=== PATIENT | male | born 1945 | race Caucasian/White ===

== ENCOUNTER → 2019-05-15 | Day surgery (SDC) | payer BC ==
[2019-05-08 15:00] LABS: BASOPHILS % 0.4 % (0.0-1.0); EOSINOPHILS # (AUTO) 0.2 (0.0-0.4); EOSINOPHILS % 2.4 % (0.0-6.0); HEMATOCRIT 45.3 % (38.2-49.6); HEMOGLOBIN 14.4 g/dL (14.0-18.0); LYMPHOCYTES # (AUTO) 2.4 (1.0-3.2); LYMPHOCYTES % 30.8 % (18.0-39.1); MEAN CORPUSCULAR HEMOGLOBIN 30.8 pg (28-32); MEAN CORPUSCULAR HGB CONC 31.8 g/dL (31-35); MEAN CORPUSCULAR VOLUME 96.8 fL (81-99); MONOCYTES % 13.4 % (4.4-11.3); NEUTROPHILS % 52.5 % (38.7-80.0); PLATELET COUNT 201 x10e3/uL (140-360); RED BLOOD COUNT 4.68 x10e6/uL (4.3-5.7); RED CELL DISTRIBUTION WIDTH 14.4 % (11.7-14.4)
[~2019-05-15] MED LIST: ADVAIR; ADVAIR 250-501 EACH INH; AMIODARONE HCL200 MG PO; AMLODIPINE BESYL5 MG PO; ASPIR 8181 MG PO; ASPIRIN325 MG PO; CALCITRIOL0.25 MCG PO; CRESTOR20 MG PO; FAMOTIDINE20 MG PO; FLOMAX0.4 MG PO; FUROSEMIDE40 MG PO; ISOSORBIDE MONO30 MG PO; LEVOTHYROXINE50 MCG PO; LISINOPRIL; METOPROLOL TART25 MG PO; PLAVIX75 MG PO; POTASSIUM CHLO20 ME1 PO; PROPOFOL IV EMULSION 10 MG/ML 50 ML VIAL ONE; SIMVASTATIN; VASCEPA1 GM PO; VERAPAMIL HCL360 MG PO; VERAPAMIL PO; XOPENEX HFA15 GM INH
--- OUTSIDE RECORDS SUMMARY | 2019-05-15 14:30 | XMS REPORT ---
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 Active Not available benzonatate 100 mg capsule Completed 01/29/2016 calcitriol 0.25 mcg capsule TAKE ONE CAPSULE BY MOUTH EVERY DAY Active Not available carvedilol 12.5 mg tablet Active Not available cefdinir 300 mg capsule Completed 01/29/2016 ciprofloxacin 500 mg tablet Completed 06/16/2017 clopidogrel 75 mg tablet Active Not available Crestor 40 mg tablet Completed 01/01/2016 diazepam 10 mg tablet Completed 01/31/2017 ferrous sulfate 325 mg (65 mg iron) tablet Take 1 tablet every day by oral route for 60 days. Completed 01/31/2017 fluticasone 50 mcg/actuation nasal spray,suspension Active Not available furosemide 40 mg tablet Active Not available hydrocortisone acetate 25 mg rectal suppository Insert 1 suppository twice a day by rectal route for 14 days. Active Not available Hydromet 5 mg-1.5 mg/5 mL syrup Take 5 mL every 4 hours by oral route as needed for 10 days. Completed 06/16/2017 ipratropium bromide 0.02 % solution for inhalation use as needed Active Not available isosorbide mononitrate ER 30 mg tablet,extended release 24 hr Active Not available levalbuterol HFA 45 mcg/actuation aerosol inhaler Active Not available levothyroxine 50 mcg tablet Active Not available lisinopril 20 mg-hydrochlorothiazide 25 mg tablet Active Not available methylprednisolone 4 mg tablets in a dose pack Completed 06/16/2017 metoprolol tartrate 25 mg tablet Active Not available nystatin 100,000 unit/gram topical cream APPLY TO THE AFFECTED AREA(S) BY TOPICAL ROUTE 2 TIMES PER DAY Completed 04/12/2017 omeprazole 40 mg capsule,delayed release Completed 01/29/2016 01/29/2016 potassium chloride ER 20 mEq tablet,extended release(part/cryst) Completed 03/03/2016 prednisolone acetate 1 % eye drops,suspension Completed 03/03/2016 Protonix 40 mg tablet,delayed release Take 1 tablet every day Completed 09/09/2016 rosuvastatin 20 mg tablet Active Not available Senokot-S 8.6 mg-50 mg tablet Take 2 tablets every day by oral route. Completed 09/09/2016 tamsulosin 0.4 mg capsule Active Not available tramadol 50 mg tablet Completed 04/12/2017 verapamil ER (PM) 300 mg capsule 24hr pellet CT,ext.release Completed 01/29/2016 Vitamin D2 50,000 unit capsule Active Not available Problems Name Status Onset Date Source Pure Hypercholesterolemia Active 01/13/2015 History Recurrent Major Depression Active 01/13/2015 History Insomnia Active 01/13/2015 History Moderate Persistent Asthma Active 01/13/2015 History Gastroesophageal Reflux Disease without Esophagitis Active 01/13/2015 History Chronic Kidney Disease Stage 3 Unknown 01/13/2015 History Localized Edema Active 01/13/2015 History Clinical Finding Unknown 01/13/2015 History First Degree Atrioventricular Block Active 05/12/2015 History Paroxysmal Atrial Fibrillation Active 05/12/2015 History Antiplatelet Agent Therapy Active 05/12/2015 History Long-term Drug Therapy Active 05/12/2015 History Therapeutic Drug Monitoring Assay Unknown 05/12/2015 History Testicular Hypofunction Active 05/21/2015 History 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 05/21/2015 History Chronic Ischemic Heart Disease Active 07/22/2015 History Chronic Kidney Disease Stage 4 Active 07/22/2015 History Congenital Cystic Disease of Liver Unknown 07/31/2015 History Lower Urinary Tract Symptoms Due to Benign Prostatic Hypertrophy Active 01/01/2016 Coronary Bypass Graft Finding Active 01/29/2016 Obstructive Sleep Apnea Syndrome Active 02/18/2016 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 Chronic Obstructive Lung Disease Active 09/09/2016 Arteriosclerosis of Coronary Artery Bypass Graft Active 12/08/2016 Procedures Date Name Performed by 06/03/2016 XR, Hip, Unilateral, 2 or 3 View Information not available Notes: Triple By-pass 12/2015 Lab Results Date Name Specimen Result Interpretation Description Value Range Status Address 03/03/2016 CBC W/ Auto Diff Normal White Blood Cell Count 10.8 thousand/uL 3.8-10.8 thousand/uL Final [facility]: [address] [facility], [place] Normal Red Blood Cell Count 5.19 million/uL 4.20-5.80 million/uL Final [facility]: [address] [facility], [place] Normal Hemoglobin 14.2 g/dL 13.2-17.1 g/dL Final [facility]: [address] [facility], [place] Normal Hematocrit 46.0 % 38.5-50.0 % [facility]: [address] [facility], [place] Normal Mcv 88.6 fL 80.0-100.0 fL Final [facility]: [address] [place] [address], [place] Normal Mch 27.4 pg 27.0-33.0 pg Final [facility]: [address] [place] [address], [place] Low Mchc 30.9 g/dL 32.0-36.0 g/dL Final [facility]: [address] [facility], [place] High Rdw 16.1 % 11.0-15.0 % [facility]: [address] [facility], [place] Normal Platelet Count 299 thousand/uL 140-400 thousand/uL Final [facility]: [address] [place] [address], [place] Normal Mpv 9.6 fL 7.5-11.5 fL Final [facility]: [address] [facility], [place] Normal Absolute Neutrophils 5962 cells/uL 0081-7102 cells/uL Final [facility]: [address] [facility], [place] Normal Absolute Lymphocytes 3035 cells/uL 850-3900 cells/uL Final [facility]: [address] [facility], [place] Normal Absolute Monocytes 918 cells/uL 200-950 cells/uL Final [facility]: [address] [facility], [place] High Absolute Eosinophils 832 cells/uL 15-500 cells/uL Final [facility]: [address] [place] [address], [place] Normal Absolute Basophils 54 cells/uL 0-200 cells/uL Final [facility]: [address] [place] [address], [place] Normal Neutrophils 55.2 % Final [facility]: [address] [place] [address], [place] Normal Lymphocytes 28.1 % Final [facility]: [address] [place] [address], [place] Normal Monocytes 8.5 % Final [facility]: [address] [place] [address], [place] Normal Eosinophils 7.7 % Final [facility]: [address] [place] [address], [place] Normal Basophils 0.5 % Final [facility]: [address] [place] [address], [place] 01/29/2016 Lipid Panel, Serum Low Cholesterol, Total 121 mg/dL 125- 200 mg/dL Final [facility]: [address] [place] [address], [place] Low HDL Cholesterol 39 mg/dL > or=40 mg/dL Final [facility]: [address] [place] [address], [place] Normal Triglycerides 119 mg/dL <150 mg/dL Final [facility]: [address] [place] [address], [place] Normal LDL-cholesterol 58 mg/dL (calc) <130 mg/dL (calc) Final [facility]: [address] [place] [address], [place] Normal Chol/hdlc Ratio 3.1 (calc) < or=5.0 (calc) Final [facility]: [address] [place] [address], [place] Normal Non HDL Cholesterol 82 mg/dL (calc) Final [facility]: [address] [place] [address], [place] 01/29/2016 Magnesium, Serum or Plasma Normal Magnesium 1.9 mg/dL 1.5- 2.5 mg/dL Final [facility]: [address] [place] [address], [place] 01/29/2016 Phosphorus, Serum or Plasma Normal Phosphate (as Phosphorus) 2.9 mg/dL 2.1-4.3 mg/dL Final [facility]: [address] [place] [address], [place] 01/29/2016 CMP, Serum or Plasma Normal Glucose 87 mg/dL 65-99 mg/dL Final [facility]: [address] [place] [address], [place] Normal Urea Nitrogen (BUN) 13 mg/dL 7-25 mg/dL Final [facility]: [address] [place] [address], [place] High Creatinine 1.35 mg/dL 0.70-1.18 mg/dL Final [facility]: [address] [facility] [address] [facility], [place] Low eGFR Non-afr. Swedish 53 mL/min/1.73m2 > or=60 mL/min/1.73m2 Final [facility]: [address], [place] Normal eGFR 61 mL/min/1.73m2 > or=60 mL/min/1.73m2 Final [facility]: [address], [place] Normal BUN/creatinine Ratio 10 (calc) 6-22 (calc) Final [facility]: [address] [facility], [place] Normal Sodium 142 mmol/L 135-146 mmol/L Final [facility]: [address] [facility], [place] Normal Potassium 4.3 mmol/L 3.5-5.3 mmol/L Final [facility]: [address] [facility], [place] Normal Chloride 106 mmol/L 98-110 mmol/L Final [facility]: [address] [facility], [place] Normal Carbon Dioxide 29 mmol/L 20-31 mmol/L Final [facility]: [address] [facility], [place] Normal Calcium 9.3 mg/dL 8.6-10.3 mg/dL Final [facility]: [address] [facility], [place] Normal Protein, Total 6.6 g/dL 6.1-8.1 g/dL Final [facility]: [address] [facility], [place] Normal Albumin 4.1 g/dL 3.6-5.1 g/dL Final [facility]: [address] [facility], [place] Normal Globulin 2.5 g/dL (calc) 1.9-3.7 g/dL (calc) Final [facility]: [address] [facility], [place] Normal Albumin/globulin Ratio 1.6 (calc) 1.0-2.5 (calc) Final [facility]: [address] [facility], [place] Normal Bilirubin, Total 0.5 mg/dL 0.2-1.2 mg/dL Final [facility]: [address] [facility], [place] Normal Alkaline Phosphatase 80 U/L 40-115 U/L Final [facility]: [address] [facility], [place] Normal Ast 20 U/L 10-35 U/L Final [facility]: [address] [facility], [place] Normal Alt 20 U/L 9-46 U/L Final [facility]: [address], [place] 01/29/2016 CBC W/ Auto Diff Normal White Blood Cell Count 7.7 thousand/uL 3.8-10.8 thousand/uL Final [facility]: [address] [facility], [place] Normal Red Blood Cell Count 4.55 million/uL 4.20-5.80 million/uL Final [facility]: [address] [facility], [place] Low Hemoglobin 12.6 g/dL 13.2-17.1 g/dL Final [facility]: [address] [facility], [place] Normal Hematocrit 41.2 % 38.5-50.0 % Final [facility]: [address] [place] [address], [place] Normal Mcv 90.6 fL 80.0-100.0 fL Final [facility]: [address] [place] [address], [place] Normal Mch 27.6 pg 27.0-33.0 pg Final [facility]: [address] [place] [address], [place] Low Mchc 30.5 g/dL 32.0-36.0 g/dL Final [facility]: [address] [facility], [place] High Rdw 17.5 % 11.0-15.0 % Final [facility]: [address] [place] [address], [place] Normal Platelet Count 277 thousand/uL 140-400 thousand/uL Final [facility]: [address] [facility], [place] Normal Mpv 9.5 fL 7.5-11.5 fL Final [facility]: [address] [facility], [place] Normal Absolute Neutrophils 4389 cells/uL 7705-2665 cells/uL Final [facility]: [address] [facility], [place] Normal Absolute Lymphocytes 2133 cells/uL 850-3900 cells/uL Final [facility]: [address] [facility], [place] Normal Absolute Monocytes 593 cells/uL 200-950 cells/uL Final [facility]: [address] [place] [address], [place] High Absolute Eosinophils 547 cells/uL 15-500 cells/uL Final [facility]: [address], [place] Normal Absolute Basophils 39 cells/uL 0-200 cells/uL Final [facility]: [address], [place] Normal Neutrophils 57.0 % Final [facility]: [address], [place] Normal Lymphocytes 27.7 % Final [facility]: [address], [place] Normal Monocytes 7.7 % Final [facility]: [address], [place] Normal Eosinophils 7.1 % Final [facility]: [address], [place] Normal Basophils 0.5 % Final [facility]: [address], [place] 01/29/2016 PTH (Parathyroid Hormone), Intact, Serum or Plasma Normal Parathyroid Hormone, Intact 51 pg/mL 14-64 pg/mL Final [facility]: [address], [place] Past Encounters 06/16/2017 Painless Rectal Bleeding; History of Polyp of Colon; Body Mass Index 30+ - Obesity NADIA [place]: [address] [place] [phone], Ph. 04/12/2017 Upper Respiratory Infection; Cough; Chronic Obstructive Lung Disease; Hyperparathyroidism Due to Renal Insufficiency; Paroxysmal Atrial Fibrillation; Chronic Kidney Disease Stage 4; Influenza Vaccination; Malignant Hypertensive Heart and Renal Disease; Chronic Ischemic Heart Disease; Coronary Bypass Graft Finding; Obstructive Sleep Apnea Syndrome; Moderate Persistent Asthma Alek King MD: [address] [place] [phone], Ph. 01/31/2017 Chronic Constipation; Candidiasis of Skin; Chronic Obstructive Lung Disease; Malignant Hypertensive Heart and Renal Disease; Chronic Ischemic Heart Disease; Long-term Current Use of Antiplatelet Drug; Obstructive Sleep Apnea Syndrome; Hyperparathyroidism Due to Renal Insufficiency; Acquired Hypothyroidism Alek King MD: [address] [place] [phone], Ph. 09/09/2016 Malignant Hypertensive Heart and Renal Disease; Paroxysmal Atrial Fibrillation; Chronic Ischemic Heart Disease; Chronic Obstructive Lung Disease; Chronic Kidney Disease Stage 4; Pure Hypercholesterolemia; Lower Urinary Tract Symptoms Due to Benign Prostatic Hypertrophy; Hyperparathyroidism Due to Renal Insufficiency Alek King MD: [address] [place] [address], [place] [phone], Ph. 06/03/2016 Acute Low Back Pain; Hip Pain; Hyperparathyroidism Due to Renal Insufficiency; Paroxysmal Atrial Fibrillation; Chronic Kidney Disease Stage 4 Alek King MD: [address] [place] [address], [address] [place] [phone], Ph. 03/03/2016 Melena Due to Gastrointestinal Hemorrhage; Influenza Vaccination lAek King MD: [address] [place] [address], [address] [address], Ph. 01/29/2016 Hypertensive Renal Disease; Coronary Bypass Graft Finding; Moderate Persistent Asthma; Antiplatelet Agent Therapy; Hyperparathyroidism Due to Renal Insufficiency; Gastroesophageal Reflux Disease without Esophagitis; Chronic Kidney Disease Stage 4; Pure Hypercholesterolemia Alek King MD: [address] [place] [address], [address] [phone], Ph. 01/01/2016 Surgical Follow-up; Chronic Ischemic Heart Disease; History of Coronary Artery Bypass Grafting; Moderate Persistent Asthma; Chronic Kidney Disease Stage 4; Antiplatelet Agent Therapy; Pure Hypercholesterolemia; Localized Edema; Paroxysmal Atrial Fibrillation; Therapeutic Drug Monitoring Assay; Hyperparathyroidism Due to Renal Insufficiency; Insomnia; Gastroesophageal Reflux Disease without Esophagitis Alek King MD: [address] [place] [address], [facility] [address] [phone], Ph. Social History Smoking Status Never Smoker Vaccine List Vaccine Type influenza, injectable, quadrivalent 12/10/2014 03/03/2016 influenza, injectable, quadrivalent, preservative free 04/12/20170.5 mL influenza, seasonal, injectable 12/07/2013 pneumococcal conjugate PCV 13 03/03/20160.5 mL Plan of Care Reminders Provider Appointments None recorded. Lab None recorded. Referral None recorded. Procedures None recorded. Surgeries None recorded. Imaging None recorded. Vitals 06/16/2017 01:15PM Est Patient Height Weight BMI Blood Pressure 6 ft 255.3 lbs 34.6 kg/m2 121/70 mm[Hg] 04/12/2017 10:30AM Est Patient Height Weight BMI Blood Pressure 6 ft 243 lbs 33 kg/m2 105/64 mm[Hg] 01/31/2017 04:00PM Est Patient Height Weight BMI Blood Pressure 6 ft 252.4 lbs 34.2 kg/m2 117/69 mm[Hg] 09/09/2016 01:30PM Est Patient Height Weight BMI Blood Pressure 6 ft 253 lbs 34.3 kg/m2 116/70 mm[Hg] 06/03/2016 10:15AM Est Patient Height Weight BMI Blood Pressure 6 ft 256.6 lbs 34.8 kg/m2 114/69 mm[Hg] 03/03/2016 12:45PM Work In Same Day Height Weight BMI Blood Pressure 6 ft 243 lbs 33 kg/m2 130/75 mm[Hg] 01/29/2016 03:45PM Est Patient Height Weight BMI Blood Pressure 6 ft 247 lbs 33.5 kg/m2 148/75 mm[Hg] 01/01/2016 02:45PM Est Patient Height Weight BMI Blood Pressure 6 ft 261.2 lbs 35.4 kg/m2 143/75 mm[Hg] 07/31/2015 Height Weight BMI Blood Pressure 6 ft 269.2 lbs 36.51 kg/m2 126/81 mm[Hg] 07/22/2015 Height Weight BMI Blood Pressure 6 ft 271.4 lbs 36.80 kg/m2 117/69 mm[Hg] 06/17/2015 Height Weight BMI Blood Pressure 6 ft 271.2 lbs 36.78 kg/m2 98/68 mm[Hg] 06/03/2015 Height Weight BMI Blood Pressure 6 ft 273.6 lbs 37.10 kg/m2 118/72 mm[Hg] 05/21/2015 Height Weight BMI 6 ft 265.6 lbs 36.02 kg/m2 05/21/2015 Blood Pressure 110/62 mm[Hg] 05/12/2015 Height Weight BMI Blood Pressure 6 ft 268.2 lbs 36.37 kg/m2 118/76 mm[Hg] 01/20/2015 Height Weight BMI Blood Pressure 6 ft 244.4 lbs 33.14 kg/m2 100/58 mm[Hg] 01/13/2015 Height Weight BMI Blood Pressure 6 ft 249.8 lbs 33.88 kg/m2 124/72 mm[Hg] 12/13/2014 Height Weight BMI Blood Pressure 6 ft 245.2 lbs 33.25 kg/m2 112/62 mm[Hg] 12/11/2014 Height Weight BMI Blood Pressure 6 ft 244 lbs 33.09 kg/m2 120/80 mm[Hg] 12/10/2014 Height Weight BMI Blood Pressure 6 ft 244.6 lbs 33.17 kg/m2 118/76 mm[Hg] 11/08/2014 Height Weight BMI Blood Pressure 6 ft 241.6 lbs 32.76 kg/m2 110/74 mm[Hg] 05/29/2014 Height Weight BMI Blood Pressure 6 ft 249.8 lbs 33.88 kg/m2 115/60 mm[Hg] 02/25/2014 Height Weight BMI Blood Pressure 6 ft 262.6 lbs 35.61 kg/m2 130/70 mm[Hg] 2013 Height Weight BMI Blood Pressure 6 ft 264 lbs 35.80 kg/m2 130/90 mm[Hg] 12/07/2013 Height Weight BMI Blood Pressure 6 ft 261.2 lbs 35.42 kg/m2 130/70 mm[Hg] 06/07/2013 Height Weight 6 ft 259 lbs 03/28/2013 Height Weight 6 ft 258.6 lbs 02/01/2013 Height Weight 6 ft 260.8 lbs 11/20/2012 Height Weight 6 ft 251 lbs 08/17/2012 Height Weight 6 ft 245.8 lbs 08/08/2012 Height Weight 6 ft 249.9 lbs 07/20/2012 Height Weight 6 ft 258 lbs 07/12/2012 Height Weight 6 ft 256.9 lbs 05/29/2012 Height Weight 6 ft 257.8 lbs 05/15/2012 Height Weight 6 ft 262.4 lbs 04/25/2012 Height Weight 6 ft 257.8 lbs 03/16/2012 Height Weight 6 ft 260.2 lbs 03/01/2012 Height Weight 6 ft 259.8 lbs 01/12/2012 Height Weight 6 ft 260.8 lbs 01/10/2012 Height Weight 6 ft 260.8 lbs 01/03/2012 Height Weight 6 ft 264.4 lbs 04/19/2011 Height Weight 6 ft 258 lbs 01/06/2011 Height Weight 6 ft 253.8 lbs 12/22/2010 Height Weight 6 ft 249 lbs 07/07/2010 Height Weight 6 ft 233.8 lbs 04/21/2010 Weight 246 lbs 04/15/2010 Height Weight 6 ft 245.4 lbs 04/08/2010 Height Weight 6 ft 245.4 lbs 11/18/2009 Weight 246.6 lbs 07/25/2009 Weight 239 lbs 06/11/2009 Weight 243.4 lbs 04/28/2009 Weight 250 lbs 12/27/2008 Weight 240 lbs 12/11/2008 Weight 238 lbs 11/21/2008 Weight 234 lbs 10/31/2008 Weight 236 lbs 06/26/2008 Height Weight 5 ft 11 in 241 lbs 03/01/2008 Height Weight 6 ft 236 lbs 02/23/2008 Weight 240.9 lbs 02/14/2008 Weight 238.9 lbs 01/15/2008 Weight 235.7 lbs 10/20/2007 Weight 243 lbs 10/09/2007 Weight 239.7 lbs 09/20/2007 Weight 246.1 lbs 08/09/2007 Weight 237.6 lbs 05/30/2007 Weight 239.3 lbs 05/03/2007 Weight 233.9 lbs 01/09/2007 Weight 234.7 lbs 09/09/2006 Weight 236.5 lbs 07/28/2006 Weight 232.5 lbs 02/10/2006 Weight 231.5 lbs 01/31/2006 Weight 225.2 lbs 09/23/2005 Weight 232 lbs 09/03/2005 Weight 231 lbs 07/07/2005 Weight 229 lbs 04/13/2005 Weight 224 lbs 03/29/2005 Weight 224 lbs 02/23/2005 Weight 228 lbs 11/10/2004 Weight 229 lbs 08/07/2004 Weight 228 lbs 03/20/2004 Weight 229 lbs 01/16/2004 Weight 227 lbs 12/31/2003 Weight 221 lbs
[2019-05-15 15:47] VITALS: BP 128/66
== END | disposition home or self-care (01) ==
LOC: OR 02:10
PROVIDERS: ATTEND Internal Medicine Gastroenterology
DX: Z12.11 Encounter for screening for malignant neoplasm of colon (principal); D12.0 Benign neoplasm of cecum; D12.2 Benign neoplasm of ascending colon; D12.3 Benign neoplasm of transverse colon; D12.4 Benign neoplasm of descending colon; K57.30 Diverticulosis of large intestine without perforation or abscess without bleeding; K64.8 Other hemorrhoids; K31.89 Other diseases of stomach and duodenum; K21.9 Gastro-esophageal reflux disease without esophagitis; G47.33 Obstructive sleep apnea (adult) (pediatric); I25.810 Atherosclerosis of coronary artery bypass graft(s) without angina pectoris; I48.91 Unspecified atrial fibrillation; E78.5 Hyperlipidemia, unspecified; E03.9 Hypothyroidism, unspecified; R73.03 Prediabetes; E66.9 Obesity, unspecified; F95.9 Tic disorder, unspecified; I12.9 Hypertensive chronic kidney disease with stage 1 through stage 4 chronic kidney disease, or unspecified chronic kidney disease; N18.3 Chronic kidney disease, stage 3 (moderate); I44.0 Atrioventricular block, first degree; J45.909 Unspecified asthma, uncomplicated; K76.9 Liver disease, unspecified; H91.90 Unspecified hearing loss, unspecified ear; Z01.810 Encounter for preprocedural cardiovascular examination; Z01.812 Encounter for preprocedural laboratory examination; Z79.899 Other long term (current) drug therapy; Z79.02 Long term (current) use of antithrombotics/antiplatelets; Z79.82 Long term (current) use of aspirin; Z68.37 Body mass index [BMI] 37.0-37.9, adult; Z95.1 Presence of aortocoronary bypass graft; Z98.61 Coronary angioplasty status
CPT/HCPCS: 36415; 45384; 45385; 85025; 93005; J2704; 45378

== ENCOUNTER 2020-02-04 15:35 | Outpatient (RCR) | payer BC ==
[~2020-02-04 15:35] MED LIST changes: +CLOTRIMAZOLE/BETAMETHASONE 45 GM CR TP ONE; -PROPOFOL IV EMULSION 10 MG/ML 50 ML VIAL ONE
[2020-02-11] MEDS ORDERED: FLUOCINONIDE 0.05% 1 EA/15 GM TUBE ONE (12:46)
[2020-02-11] MEDS ORDERED: MUPIROCIN 2% OINT 22 GM TUBE ONE (12:46)
== END 2020-02-11 ==
LOC: WCC 15:35
PROVIDERS: ATTEND Internal Medicine Infectious Disease
DX: E11.65 Type 2 diabetes mellitus with hyperglycemia (principal); B35.4 Tinea corporis; B37.2 Candidiasis of skin and nail; I12.9 Hypertensive chronic kidney disease with stage 1 through stage 4 chronic kidney disease, or unspecified chronic kidney disease; L03.115 Cellulitis of right lower limb; S81.801A Unspecified open wound, right lower leg, initial encounter; R60.0 Localized edema; L08.9 Local infection of the skin and subcutaneous tissue, unspecified; D12.4 Benign neoplasm of descending colon; N18.30 Chronic kidney disease, stage 3 unspecified; K76.9 Liver disease, unspecified; K57.30 Diverticulosis of large intestine without perforation or abscess without bleeding; B96.89 Other specified bacterial agents as the cause of diseases classified elsewhere; I25.810 Atherosclerosis of coronary artery bypass graft(s) without angina pectoris; E78.5 Hyperlipidemia, unspecified; I48.91 Unspecified atrial fibrillation; E03.9 Hypothyroidism, unspecified; H91.20 Sudden idiopathic hearing loss, unspecified ear; K21.9 Gastro-esophageal reflux disease without esophagitis; J45.909 Unspecified asthma, uncomplicated; E66.9 Obesity, unspecified
CPT/HCPCS: 36415; 82948

== ENCOUNTER → 2020-02-08 | Outpatient (CLI) | payer BC ==
[~2020-02-08] MED LIST changes: -CLOTRIMAZOLE/BETAMETHASONE 45 GM CR TP ONE
== END ==
LOC: WCC 16:18
PROVIDERS: ATTEND Internal Medicine Infectious Disease
DX: E11.65 Type 2 diabetes mellitus with hyperglycemia (principal); B35.4 Tinea corporis; B37.2 Candidiasis of skin and nail; L03.115 Cellulitis of right lower limb; R60.0 Localized edema; D12.4 Benign neoplasm of descending colon; E78.5 Hyperlipidemia, unspecified; I12.9 Hypertensive chronic kidney disease with stage 1 through stage 4 chronic kidney disease, or unspecified chronic kidney disease; K57.30 Diverticulosis of large intestine without perforation or abscess without bleeding; K76.9 Liver disease, unspecified; K21.9 Gastro-esophageal reflux disease without esophagitis; I25.810 Atherosclerosis of coronary artery bypass graft(s) without angina pectoris; I48.91 Unspecified atrial fibrillation; E03.9 Hypothyroidism, unspecified; E66.9 Obesity, unspecified; H91.20 Sudden idiopathic hearing loss, unspecified ear; J45.909 Unspecified asthma, uncomplicated; L08.9 Local infection of the skin and subcutaneous tissue, unspecified; B96.89 Other specified bacterial agents as the cause of diseases classified elsewhere; N18.30 Chronic kidney disease, stage 3 unspecified; S81.801A Unspecified open wound, right lower leg, initial encounter

== ENCOUNTER → 2020-02-11 | Outpatient (CLI) | payer BC | LOC: WCC 15:26 | PROVIDERS: ATTEND Internal Medicine Infectious Disease | DX: E11.65 Type 2 diabetes mellitus with hyperglycemia (principal); B35.4 Tinea corporis; L03.115 Cellulitis of right lower limb; B37.2 Candidiasis of skin and nail; R60.0 Localized edema; I12.9 Hypertensive chronic kidney disease with stage 1 through stage 4 chronic kidney disease, or unspecified chronic kidney disease; L08.9 Local infection of the skin and subcutaneous tissue, unspecified; S81.801A Unspecified open wound, right lower leg, initial encounter; B96.89 Other specified bacterial agents as the cause of diseases classified elsewhere; N18.30 Chronic kidney disease, stage 3 unspecified; D12.4 Benign neoplasm of descending colon; E03.9 Hypothyroidism, unspecified; E66.9 Obesity, unspecified; E78.5 Hyperlipidemia, unspecified; H91.20 Sudden idiopathic hearing loss, unspecified ear; I25.810 Atherosclerosis of coronary artery bypass graft(s) without angina pectoris; I48.91 Unspecified atrial fibrillation; J45.909 Unspecified asthma, uncomplicated; K21.9 Gastro-esophageal reflux disease without esophagitis; K57.30 Diverticulosis of large intestine without perforation or abscess without bleeding; K76.9 Liver disease, unspecified ==

== ENCOUNTER → 2020-02-18 | Outpatient (CLI) | payer BC ==
[~2020-02-18] MED LIST changes: +CLOTRIMAZOLE/BETAMETHASONE 45 GM CR TP ONE
== END ==
LOC: WCC 13:13
PROVIDERS: ATTEND Internal Medicine Infectious Disease
DX: E11.65 Type 2 diabetes mellitus with hyperglycemia (principal); B35.4 Tinea corporis; B37.2 Candidiasis of skin and nail; L03.115 Cellulitis of right lower limb; R60.0 Localized edema; L08.9 Local infection of the skin and subcutaneous tissue, unspecified; S81.801A Unspecified open wound, right lower leg, initial encounter; B96.89 Other specified bacterial agents as the cause of diseases classified elsewhere; I12.9 Hypertensive chronic kidney disease with stage 1 through stage 4 chronic kidney disease, or unspecified chronic kidney disease; N18.30 Chronic kidney disease, stage 3 unspecified; D12.4 Benign neoplasm of descending colon; I48.91 Unspecified atrial fibrillation; K57.30 Diverticulosis of large intestine without perforation or abscess without bleeding; I25.810 Atherosclerosis of coronary artery bypass graft(s) without angina pectoris; K76.9 Liver disease, unspecified; E03.9 Hypothyroidism, unspecified; E78.5 Hyperlipidemia, unspecified; E66.9 Obesity, unspecified; H91.20 Sudden idiopathic hearing loss, unspecified ear; J45.909 Unspecified asthma, uncomplicated; K21.9 Gastro-esophageal reflux disease without esophagitis

== ENCOUNTER → 2020-02-25 | Outpatient (CLI) | payer BC ==
[~2020-02-25] MED LIST changes: -CLOTRIMAZOLE/BETAMETHASONE 45 GM CR TP ONE
== END ==
LOC: WCC 13:39
PROVIDERS: ATTEND Internal Medicine Infectious Disease
DX: B35.4 Tinea corporis (principal); B37.2 Candidiasis of skin and nail; E11.65 Type 2 diabetes mellitus with hyperglycemia; L03.115 Cellulitis of right lower limb; S81.801A Unspecified open wound, right lower leg, initial encounter; R60.0 Localized edema; L08.9 Local infection of the skin and subcutaneous tissue, unspecified; B96.89 Other specified bacterial agents as the cause of diseases classified elsewhere; I12.9 Hypertensive chronic kidney disease with stage 1 through stage 4 chronic kidney disease, or unspecified chronic kidney disease; N18.30 Chronic kidney disease, stage 3 unspecified; D12.4 Benign neoplasm of descending colon; E03.9 Hypothyroidism, unspecified; E66.9 Obesity, unspecified; E78.5 Hyperlipidemia, unspecified; H91.20 Sudden idiopathic hearing loss, unspecified ear; I25.810 Atherosclerosis of coronary artery bypass graft(s) without angina pectoris; I48.91 Unspecified atrial fibrillation; J45.909 Unspecified asthma, uncomplicated; K21.9 Gastro-esophageal reflux disease without esophagitis; K57.30 Diverticulosis of large intestine without perforation or abscess without bleeding; K76.9 Liver disease, unspecified

== ENCOUNTER → 2020-06-02 | Outpatient (CLI) | payer BC, OTHER ==
[~2020-06-02] MED LIST changes: +COVID-19 VACC, MRNA(MODERNA)/PF 100 MCG/0.5 ML VIAL IM ONE
== END | disposition home or self-care (01) ==
LOC: VACCPMC 17:51
DX: Z23 Encounter for immunization (principal); Z20.822 Contact with and (suspected) exposure to COVID-19
CPT/HCPCS: 91301

== ENCOUNTER → 2020-06-30 | Outpatient (CLI) | payer BC, OTHER | END | disposition home or self-care (01) | LOC: VACCPMC 09:22 | DX: Z23 Encounter for immunization (principal); Z20.822 Contact with and (suspected) exposure to COVID-19 | CPT/HCPCS: 91301 ==

== ENCOUNTER → 2020-09-23 | Day surgery (SDC) | payer BC ==
[2020-09-19 13:02] LABS: BASOPHILS % 0.5 % (0.0-1.0); EOSINOPHILS # (AUTO) 0.5 (0.0-0.4); EOSINOPHILS % 6.7 % (0.0-6.0); HEMATOCRIT 45.1 % (38.2-49.6); HEMOGLOBIN 13.9 g/dL (14.0-18.0); LYMPHOCYTES # (AUTO) 2.9 (1.0-3.2); LYMPHOCYTES % 37.7 % (18.0-39.1); MEAN CORPUSCULAR HEMOGLOBIN 30.8 pg (28-32); MEAN CORPUSCULAR HGB CONC 30.8 g/dL (31-35); MEAN CORPUSCULAR VOLUME 99.8 fL (81-99); MONOCYTES # (AUTO) 0.6 (0.2-0.8); MONOCYTES % 8.1 % (4.4-11.3); NEUTROPHILS # (AUTO) 3.6 (2.1-6.9); NEUTROPHILS % 46.5 % (38.7-80.0); PLATELET COUNT 201 x10e3/uL (140-360); RED BLOOD COUNT 4.52 x10e6/uL (4.3-5.7); RED CELL DISTRIBUTION WIDTH 14.3 % (11.7-14.4)
[~2020-09-23] MED LIST changes: -COVID-19 VACC, MRNA(MODERNA)/PF 100 MCG/0.5 ML VIAL IM ONE; +EPHEDRINE SULFATE INJ 50 MG/ML VIAL ONE; +FENTANYL CITRATE/PF 100MCG/2 ML INJ ONE; +MIDAZOLAM HCL 2 MG/2 ML VIAL ONE; +PHENYLEPHRINE HCL 1% 10 MG/ML VIAL ONE; +PROPOFOL IV EMULSION 10 MG/ML 20 ML VIAL ONE; +PROTONIX20 MG PO; +VITAMIN D3250 MCG; +WIXELA 100-501 EACH
[2020-09-23 13:40] VITALS: BP 121/45
== END | disposition home or self-care (01) ==
LOC: OR 08:35
PROVIDERS: ATTEND Internal Medicine Gastroenterology
DX: Z12.11 Encounter for screening for malignant neoplasm of colon (principal); D12.3 Benign neoplasm of transverse colon; D12.4 Benign neoplasm of descending colon; K31.7 Polyp of stomach and duodenum; K29.50 Unspecified chronic gastritis without bleeding; K31.89 Other diseases of stomach and duodenum; K21.9 Gastro-esophageal reflux disease without esophagitis; K44.9 Diaphragmatic hernia without obstruction or gangrene; R19.5 Other fecal abnormalities; K57.30 Diverticulosis of large intestine without perforation or abscess without bleeding; I48.91 Unspecified atrial fibrillation; I45.10 Unspecified right bundle-branch block; J45.909 Unspecified asthma, uncomplicated; E03.9 Hypothyroidism, unspecified; E78.5 Hyperlipidemia, unspecified; N40.0 Benign prostatic hyperplasia without lower urinary tract symptoms; I25.810 Atherosclerosis of coronary artery bypass graft(s) without angina pectoris; R93.89 Abnormal findings on diagnostic imaging of other specified body structures; I12.9 Hypertensive chronic kidney disease with stage 1 through stage 4 chronic kidney disease, or unspecified chronic kidney disease; N18.30 Chronic kidney disease, stage 3 unspecified; Z01.810 Encounter for preprocedural cardiovascular examination; Z01.812 Encounter for preprocedural laboratory examination; Z79.02 Long term (current) use of antithrombotics/antiplatelets; Z68.36 Body mass index [BMI] 36.0-36.9, adult; Z95.1 Presence of aortocoronary bypass graft
CPT/HCPCS: 36415; 43239; 45380; 45381; 45385; 85025; 87106; 87205; 88305; 88312; 93005; J2250; J2370; J2704; J3010

== ENCOUNTER 2021-02-10 14:05 | Emergency (ER) | payer BC ==
[~2021-02-10] VITALS: Ht 182.9 cm; Wt 124.7 kg
[~2021-02-10 14:05] MED LIST changes: -EPHEDRINE SULFATE INJ 50 MG/ML VIAL ONE; -FENTANYL CITRATE/PF 100MCG/2 ML INJ ONE; -MIDAZOLAM HCL 2 MG/2 ML VIAL ONE; -PHENYLEPHRINE HCL 1% 10 MG/ML VIAL ONE; -PROPOFOL IV EMULSION 10 MG/ML 20 ML VIAL ONE; -VITAMIN D3250 MCG; +VITAMIN D3250 MCG PO; -WIXELA 100-501 EACH; +WIXELA 100-501 EACH INH
[2021-02-10] MEDS ORDERED: CASIRIVIMAB/IMDEVIMAB 10 ML in SODIUM CHLORIDE 0.9% 100 ML IV ONE (14:15)
[2021-02-10 16:28] VITALS: BP 167/65
== END 2021-02-10 16:29 | disposition home or self-care (01) ==
LOC: ER 14:31
DX: U07.1 COVID-19 (principal); I10 Essential (primary) hypertension; E78.5 Hyperlipidemia, unspecified; N18.9 Chronic kidney disease, unspecified; J44.9 Chronic obstructive pulmonary disease, unspecified; J45.909 Unspecified asthma, uncomplicated; Z95.1 Presence of aortocoronary bypass graft
CPT/HCPCS: 99282; J7050

== ENCOUNTER → 2021-03-03 | Day surgery (SDC) | payer BC ==
[~2021-03-03] MED LIST changes: +EPHEDRINE SULFATE INJ 50 MG/ML VIAL ONE; +GLUCAGON FOR INJ 1 MG VIAL ONE; +LIDOCAINE HCL 2% LOCAL INJ 5 ML SDV VIAL INJ ONE; +METOPROLOL TART50 MG PO; +POVIDONE IODINE 0.05% 0.05 % ML PO ONE; +PROPOFOL IV EMULSION 10 MG/ML 20 ML VIAL ONE
[2021-03-03 12:35] VITALS: BP 122/75
== END | disposition home or self-care (01) ==
LOC: OR 08:38
PROVIDERS: ATTEND Internal Medicine Gastroenterology
DX: R89.7 Abnormal histological findings in specimens from other organs, systems and tissues (principal); D12.2 Benign neoplasm of ascending colon; D12.3 Benign neoplasm of transverse colon; D12.4 Benign neoplasm of descending colon; K31.7 Polyp of stomach and duodenum; K29.50 Unspecified chronic gastritis without bleeding; B96.81 Helicobacter pylori [H. pylori] as the cause of diseases classified elsewhere; K31.89 Other diseases of stomach and duodenum; K44.9 Diaphragmatic hernia without obstruction or gangrene; K57.30 Diverticulosis of large intestine without perforation or abscess without bleeding; K64.8 Other hemorrhoids; G47.33 Obstructive sleep apnea (adult) (pediatric); J44.9 Chronic obstructive pulmonary disease, unspecified; I25.810 Atherosclerosis of coronary artery bypass graft(s) without angina pectoris; I48.91 Unspecified atrial fibrillation; E03.9 Hypothyroidism, unspecified; K76.89 Other specified diseases of liver; I12.9 Hypertensive chronic kidney disease with stage 1 through stage 4 chronic kidney disease, or unspecified chronic kidney disease; N18.30 Chronic kidney disease, stage 3 unspecified; E78.5 Hyperlipidemia, unspecified; N40.0 Benign prostatic hyperplasia without lower urinary tract symptoms; Z79.02 Long term (current) use of antithrombotics/antiplatelets; Z79.899 Other long term (current) drug therapy; Z68.37 Body mass index [BMI] 37.0-37.9, adult; Z86.16 Personal history of COVID-19
CPT/HCPCS: 43239; 43251; 45384; 45385; J1610; J2001; J2704; 45378

== ENCOUNTER → 2021-07-17 | Outpatient (CLI) | payer BC ==
[~2021-07-17] MED LIST changes: -EPHEDRINE SULFATE INJ 50 MG/ML VIAL ONE; -GLUCAGON FOR INJ 1 MG VIAL ONE; -LIDOCAINE HCL 2% LOCAL INJ 5 ML SDV VIAL INJ ONE; -POVIDONE IODINE 0.05% 0.05 % ML PO ONE; -PROPOFOL IV EMULSION 10 MG/ML 20 ML VIAL ONE
== END ==
LOC: DX 10:46
PROVIDERS: ATTEND Internal Medicine Gastroenterology
DX: R19.5 Other fecal abnormalities (principal); Z20.822 Contact with and (suspected) exposure to COVID-19
CPT/HCPCS: 74250; U0002